=== PATIENT | female | born 1965 | race Hispanic/Latino ===

== ENCOUNTER 2018-05-15 13:39 | Emergency (ER) | payer OTHER ==
[~2018-05-15] VITALS: Ht 157.5 cm; Wt 78.9 kg
--- OUTSIDE RECORDS SUMMARY | 2018-05-15 13:41 | XMS REPORT ---
Author Author [facility] Address Unknown Phone Unavailable Care Team Providers [employer] Name Role Phone Unavailable Unavailable Payers Payer Name Policy Type Policy Number Effective Date Expiration Date Problems This patient has no known problems. Allergies, Adverse Reactions, Alerts Allergy Name Allergy Type Status Severity Reaction(s) Onset Date Inactive Date Treating Clinician Comments hydrocodone bit DA Active SV 2018-04-06 00:00:00 hydrocodone bit DA Active SV 2016-01-23 00:00:00 Medications This patient has no known medications. Results Test Description Test Time Test Comments Text Results Atomic Results Result Comments - XR CHEST 1 V 2018-04-06 15:29:00 FAX: Marilee Oconnor [facility] [place]: [address]: REG FAX: Karen Ricks MD [phone] Name: VERONIKA SYLVESTER [facility] : 1965 Age/S: 52/F [address]i Unit #: [id number] Loc: [place] [address] Phys: Marilee Oconnor [employer] Acct: [id number] Dis Date: Status: REG ER PHONE #: [phone] Exam Date: 04/06/2018 1525 FAX #: [phone] Reason: CHEST CONGESTION EXAMS: CPT CODE: [id number] XR CHEST 1 V 07209 REASON FOR EXAM: CHEST CONGESTION EXAM ORDER DATE: 04/06/2018 3:03 PM Ordering Heydi: Marilee Oconnor NP PROCEDURE: - XR CHEST 1 V COMPARISON: FINDINGS: Portable AP frontal view of the chest obtained at 3:26 PM shows clear lungs. without evidence of consolidation. There is no evidence of effusion. The heart size is within normal limits. Pulmonary vasculatures are unremarkable. IMPRESSION: No active disease. at 1529 Reported and signed by: Ayden Monroy M.D. CC: Marilee Oconnor NP; Karen Ricks MD Technologist: CAS [employer] Trnvtrd Date/Time/By: (152) : By: LeeVTL Orig Print D/T: S: 04/06/2018 (3831) PAGE 1 Signed Report
[2018-05-15] MEDS ORDERED: HYDROCODONE/APAP 5MG-325MG TAB PO ONE (15:15)
--- NOTE | 2018-05-15 15:35 | Diagnostic Imaging Report ---
Exam: Right knee radiographs-3 views History: Pain, swelling. Comparison: None. Findings: No evidence of acute fracture or malalignment. There are mild tricompartmental degenerative changes. No evidence of suprapatellar joint effusion. Impression: No acute radiographic abnormality. Mild tricompartmental right knee osteoarthritis. Signed by: Dr. Leon Lugo MD on 05/15/2018 3:32 PM
[2018-05-15 16:04] VITALS: BP 149/107
== END 2018-05-15 16:12 | disposition home or self-care (01) ==
LOC: ER 13:39
DX: M25.561 Pain in right knee (principal); M25.461 Effusion, right knee; M13.861 Other specified arthritis, right knee; I10 Essential (primary) hypertension
CPT/HCPCS: 99283

== ENCOUNTER 2021-11-18 20:51 | Emergency (ER) | payer SELFPAY ==
[~2021-11-18] VITALS: Ht 157.5 cm; Wt 81.6 kg
[2021-11-18] MEDS ORDERED: MUCINEX DM ER1 EACH PO (22:34)
[2021-11-18] MEDS ORDERED: TAMIFLU75 MG PO (22:35)
== END 2021-11-18 22:52 | disposition home or self-care (01) ==
LOC: ER 20:56
DX: R05.9 Cough, unspecified (principal); J11.1 Influenza due to unidentified influenza virus with other respiratory manifestations; R51.9 Headache, unspecified; I10 Essential (primary) hypertension; Z20.822 Contact with and (suspected) exposure to COVID-19
CPT/HCPCS: 0223U; 36415; 71046; 87400; 99283